=== PATIENT | male | born 1960 | race African-American/Black ===

== ENCOUNTER 2018-01-18 23:13 | Observation (INO) ==
--- NOTE | 2018-01-18 23:29 | ED ---
HPI General Chief Complaint: Altered Mental Status Stated Complaint: Diabetic Time Seen by Provider: 01/18/18 23:26 Source: patient, family and EMS Mode of arrival: EMS Limitations: altered mental status History of Present Illness HPI narrative: 57-year-old male patient with history of diabetes, presents to the ER today brought in by EMS because family called, apparently he is appearing much more lethargic and disoriented than usual according to family and the blood sugars reading at 400. He was given a fluid bolus by EMS and his blood sugars going up to 500. He admits that he has recently started taking metformin. He is not able to give me much further history. He is very lethargic and disoriented. Related Data Previous Rx's Medication Instructions Recorded metformin 500 mg PO BID #60 tab 01/17/18 nystatin 1 applic TOPICAL BID #30 g 01/17/18 Allergies Allergy/AdvReac Type Severity Reaction Status Date / Time No Known Allergies Allergy Verified 01/17/18 10:26 Review of Systems ROS Unobtainable ROS Unobtainable: unobtainable due to mental status PMFSH History History Provided By: Medical Record and Classification Officer / EMT Medical History Medical History Anxiety (Acute) Depression (Acute) Hypertension (Acute) Social History Social History Substance History: No History of Abuse Second Hand Smoke Exposure: No Smoking Status: Never smoker How Often Do You Have a Drink Containing Alcohol: Never Recent Travel in [facility] within the Last 8 Weeks: No Recent Out of Country Travel within the Last 8 Weeks: No Exam Narrative Exam Narrative: GENERAL: Well-developed middle-age -Citizen Of [place] male patient currently in moderate distress. Lethargic, disoriented, not giving further history. SKIN: Focused skin assessment warm/dry. HEAD: Atraumatic. Normocephalic. EYES: Pupils equal and round. No scleral icterus. No injection or drainage. ENT: No nasal bleeding or discharge. Mucous membranes pink and moist. NECK: Trachea midline. No JVD. CARDIOVASCULAR: Regular rate and rhythm. No murmur appreciated. RESPIRATORY: No accessory muscle use. Clear to auscultation. Breath sounds equal bilaterally. GASTROINTESTINAL: Abdomen soft, non-tender, nondistended. Hepatic and splenic margins not palpable. MUSCULOSKELETAL: No obvious deformities. No clubbing. No cyanosis. No edema. NEUROLOGICAL: Lethargic and disoriented, not following commands. Face appears to be symmetrical. Slurred speech.. PSYCHIATRIC: Disoriented, unable to evaluate Course Initial Documented Vital Signs Temperature 98.2 F 01/18/18 23:35 Pulse Rate 70 01/18/18 23:35 Respiratory Rate 18 01/18/18 23:35 Blood Pressure 121/66 01/18/18 23:35 Pulse Oximetry 97 01/18/18 23:35 Last Documented Vital Signs Temperature 98.2 F 01/18/18 23:35 Pulse Rate 70 01/18/18 23:35 Respiratory Rate 18 01/18/18 23:35 Blood Pressure 121/66 01/18/18 23:35 Pulse Oximetry 97 01/18/18 23:35 Medical Decision Making MDM Narrative Medical decision making narrative: Patient had 2 L of IV fluids without significant improvement in blood sugar. Insulin was given in the ER. His anion gap is normal but his blood sugar is quite elevated 450. His ketones are elevated as well at 2. Patient has been initiated on metformin therapy and it seems to not be controlling his blood sugars well. His states that he was seen yesterday at [facility] for the similar circumstances. At this point, he is fairly disoriented and my plan would be to admit him for further treatment. Case is discussed with Dr. Durán for admission. Medical Screen Exam Complete: Yes Emergency Medical Condition: Yes Differential Diagnosis Differential Diagnosis: Electrolyte abnormalities versus sepsis versus acute intracranial processes Lab Data Lab results reviewed: Yes I reviewed the patient's lab results. Result diagrams: 01/18/18 23:35 01/18/18 23:35 Lab Results 01/18/18 01/18/18 01/18/18 Range/Units 23:35 23:35 23:45 WBC 5.3 (4.0-11.0) th/mm3 RBC 4.18 L (4.50-5.90) mil/mm3 Hgb 13.0 D (13.0-17.0) gm/dL Hct 38.6 L (39.0-51.0) % MCV 92.2 (80.0-100.0) fL MCH 31.1 (27.0-34.0) pg MCHC 33.7 (32.0-36.0) % RDW 13.3 (11.6-17.2) % Plt Count 194 (150-450) th/mm3 MPV 10.2 (7.0-11.0) fL Neut % (Auto) 50.9 (16.0-70.0) % Lymph % (Auto) 37.6 (9.0-44.0) % [place] % (Auto) 9.4 H (0.0-8.0) % Eos % (Auto) 1.4 (0.0-4.0) % Baso % (Auto) 0.7 (0.0-2.0) % Neut # (Auto) 2.7 (1.8-7.7) th/mm3 Lymph # (Auto) 2.0 (1.0-4.8) th/mm3 [place] # (Auto) 0.5 (0.0-0.9) th/mm3 Eos # (Auto) 0.1 (0.0-0.4) th/mm3 Baso # (Auto) 0.0 (0.0-0.2) th/mm3 WBC Differential . Differential Comment Auto diff final Sodium 137 (136-145) meq/L Potassium 4.1 (3.5-5.1) meq/L Chloride 101 D (98-107) meq/L Carbon Dioxide 28.7 (21.0-32.0) meq/L Anion Gap 7 (5-15) meq/L BUN 10 (7-18) mg/dL Creatinine 1.20 (0.60-1.30) mg/dL Estimated GFR 75 L (>89) mL/min Random Glucose 457 H* D (74-106) mg/dL Calcium 8.8 (8.5-10.1) mg/dL Total Bilirubin 0.3 (0.2-1.0) mg/dL AST 11 L (15-37) U/L ALT 16 (12-78) U/L Alkaline Phosphatase 127 H (45-117) U/L Total Protein 6.7 D (6.4-8.2) g/dL Albumin 3.3 L D (3.4-5.0) g/dL Beta-Hydroxybutyric Acd 2.02 H (0.00-0.39) mmol/L Urine Color Straw (Yellw/Straw) Urine Clarity Clear (Clear) Urine pH 5.0 (5.0-8.5) Ur Specific [place] 1.036 H (1.002-1.035) Urine Protein Negative (Neg-Trace) mg/dL Urine Glucose (UA) 500 or greater (Negative) mg/dL Urine Ketones 20 (Negative) mg/dL Urine Occult Blood Small H (Negative) Urine Nitrate Negative (Negative) Urine Bilirubin Negative (Negative) Urine Urobilinogen Less than 2 (Less than 2) mg/dL Ur Leukocyte Esterase Small H (Negative) Urine RBC 16 H (0-3) /hpf Urine WBC 3 (0-5) /hpf Ur Squamous Epith Cells <1 (0-5) /hpf Urine Bacteria Occasional H (None) /hpf Urine Mucus Few H (Occasional) /lpf Urine Yeast Few H (None) /hpf Ur Microscopic Review Not Reportable Imaging Data Attestation: I personally reviewed and interpreted this imaging study as follows : Radiologist's impression: Chest X-Ray 01/18/18 23:26 CONCLUSION: No acute cardiopulmonary abnormality is identified. Head CT 01/18/18 23:26 CONCLUSION: No acute intracranial abnormality is identified. . Discharge Plan Discharge Disposition Patient Disposition: 30 Still Patient Discharge Condition Condition: Stable Discharge Details Anticipated Discharge Date: 01/19/18 Diagnosis: Delirium due to general medical condition, Hyperglycemia Physicians Team ED Provider: Cyndy Booth Primary Care Provider: Primary Care Andree Stanton Rxs /Orders / Referrals /Forms Prescriptions: No Action metformin 500 mg tablet 500 mg PO BID Qty: 60 RF: 0 nystatin 100,000 unit/gram ointment 1 applic TOPICAL BID Qty: 30 RF: 0 Status ED Status: Admitted Patient
[2018-01-18 23:50] LABS: Baso % (Auto) 0.7 % (0.0-2.0); Eos # (Auto) 0.1 th/mm3 (0.0-0.4); Eos % (Auto) 1.4 % (0.0-4.0); Hematocrit 38.6 % (39.0-51.0); Lymph % (Auto) 37.6 % (9.0-44.0); Mean Corpuscular HGB Conc 33.7 % (32.0-36.0); Mean Corpuscular Hemoglobin 31.1 pg (27.0-34.0); Mean Corpuscular Volume 92.2 fL (80.0-100.0); Mean Platelet Volume 10.2 fL (7.0-11.0); Mono # (Auto) 0.5 th/mm3 (0.0-0.9); Mono % (Auto) 9.4 % (0.0-8.0); Neut # (Auto) 2.7 th/mm3 (1.8-7.7); Neut % (Auto) 50.9 % (16.0-70.0); Platelet Count 194 th/mm3 (150-450); Red Blood Count 4.18 mil/mm3 (4.50-5.90); Red Cell Distribution Width 13.3 % (11.6-17.2); White Blood Count 5.3 th/mm3 (4.0-11.0)
[2018-01-19 00:08] LABS: Bacteria,Urine Occasional /hpf; Bilirubin,Urine Negative (Negative); Clarity,Urine Clear (Clear); Color,Urine Straw (Yellw/Straw); Glucose,Urine (UA) 500 or Greater mg/dL (Negative); Leukocyte Esterase,Urine Small (Negative); Mucus,Urine Few /lpf (Occasional); Nitrite,Urine Negative (Negative); Specific Gravity,Urine 1.036 (1.002-1.035); Squamous Epithelial Cell,Urine <1 /hpf (0-5)
[2018-01-19 00:12] LABS: Alanine Aminotransferase 16 U/L (12-78); Albumin 3.3 g/dL (3.4-5.0); Alkaline Phosphatase 127 U/L (45-117); Anion Gap 7 meq/L (5-15); Aspartate Aminotransferase 11 U/L (15-37); Beta Hydroxybutyric Acid 2.02 mmol/L (0.00-0.39); Blood Urea Nitrogen 10 mg/dL (7-18); Calcium 8.8 mg/dL (8.5-10.1); Carbon Dioxide 28.7 meq/L (21.0-32.0); Chloride 101 meq/L (98-107); Glomerular Filtration Rate 75 mL/min (>89); Potassium 4.1 meq/L (3.5-5.1); Sodium 137 meq/L (136-145); Total Protein 6.7 g/dL (6.4-8.2)
[2018-01-19 00:15] LABS: Glucose,Random 457 mg/dL (74-106)
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
--- NOTE | 2018-01-19 00:36 | CT ---
EXAM DATE: 01/19/2018 12:01 AM EDT AGE/SEX: 57 years / Male INDICATIONS: Altered mental status. CLINICAL DATA: This is the patient's initial encounter. Patient reports that signs and symptoms have been present for 1 day and indicates a pain score of 0/10. MEDICAL/SURGICAL HISTORY: Hypertension. Diabetes. None. RADIATION DOSE: 38.99 CTDI (mGy) COMPARISON: [facility] [place], CT BRAIN W/O CONTRAST, 09/09/2014. . TECHNIQUE: CT of the head without contrast. Using automated exposure control and adjustment of the mA and/or kV according to patient size, radiation dose was kept as low as reasonably achievable to ob tain optimal diagnostic quality images. DICOM format image data is available electronically for revi ew and comparison. FINDINGS: Cerebrum: The ventricles are normal. No midline shift, mass lesion, hemorrhage or acute infarction. No extraaxial fluid collections are seen. Posterior Fossa: The cerebellum and brainstem demonstrate no acute abnormality. The 4th ventricle is midline. The cerebellopontine angle is within normal limits. Extracranial: The visualized sinuses are clear. Skull: The calvaria is intact. No skull fracture. CONCLUSION: No acute intracranial abnormality is identified. . Electronically signed by: Tai Lima MD 01/19/2018 12:35 AM EDT
[2018-01-19] MEDS ORDERED: Dextrose 50% in Water 50 ML Vial IV.PUSH PRN (03:35)
[2018-01-19] MEDS ORDERED: Acetaminophen 325 MG Tablet PO PRN (03:37)
[2018-01-19] MEDS ORDERED: Bisacodyl 10 MG Supp RECTAL PRN (03:37)
[2018-01-19] MEDS ORDERED: Sod Chloride 0.9% Inj 1,000 ML IV.SIG SCH (03:45)
--- NOTE | 2018-01-19 03:47 | P.HP ---
History of Present Illness Service: [facility] Primary Care Physician: No Primary Care Physician History of Present Illness: 57-year-old male with past medical history significant for recent diagnosis of diabetes mellitus and hypertension presents to the emergency department for evaluation of altered mental status. The patient reports that his sister tried to awaken him earlier this evening and she was unable to do so. She called EMS and the patient was brought to the emergency department for further evaluation. On arrival, the patient's blood sugar was elevated. He was seen in [place] 2 days ago and diagnosed with new onset diabetes and given a prescription for metformin. The patient reports he took metformin for 1 day. He denies any chest pain or shortness of breath. No abdominal pain. No nausea/ vomiting/diarrhea. He is sleepy although able to recount all events. No fever/ chills. Review of Systems All other systems reviewed negative except as stated in HPI PMFSH - History History Provided By: Medical Record, Electrician Deck / EMT - Medical History Medical History: Medical History (Last Updated 01/19/18 @ 03:43 by Octavia Durán MD) Diabetes Anxiety Depression Hypertension - Surgical History Surgical History: Surgical History (Last Updated 01/19/18 @ 03:43 by Octavia Durán MD) Hx of thumb surgery Status post wrist surgery - Family History Family History: Family History (Last Updated 01/19/18 @ 03:43 by Octavia Durán MD) Other Hypertension - Tobacco History Second Hand Smoke Exposure: No Smoking Status: Never smoker - Alcohol History How Often Do You Have a Drink Containing Alcohol: Never - Substance Use History Substance History: No History of Abuse - Travel History Recent Travel in the [place] Within the Last 8 Weeks: No Recent Travel Out of the Country Within the Last 8 Weeks: No - Immunization History Tetanus Immunization: <5 Years Hx Influenza Vaccine This Season: No Medications and Allergies Active Medications: Active Medications Acetaminophen (Tylenol) 650 mg PO Q4H PRN PRN Reason: Temp > 100.4 Al Hydroxide/Mg Hydroxide (Milk Of Magnesia Liq) 30 ml PO Q12H PRN PRN Reason: Mild Constipation Bisacodyl (Dulcolax Supp) 10 mg RECTAL DAILY PRN PRN Reason: SEVERE CONSITIPATION Dextrose (D50w Vial) 50 ml IV.PUSH UNSCH PRN PRN Reason: PER HYPOGLYCEMIA PROTOCOL Glucagon (Glucagon Inj) 1 mg OTHER PRN PRN PRN Reason: for Hypoglycemia Protocol Sodium Chloride (Ns Inj) 1,000 mls @ 125 mls/hr IV.CONT .Q8H ELEN Sodium Chloride (Ns Inj) 1,000 mls @ 0 mls/hr IV.SIG BOLUS ELEN Insulin Aspart (Novolog Insulin Correctional Sugar Inj) 0 unit SQ ACHS AND 3AM ELEN; Protocol Insulin Human Regular (Novolin R Inj) 5 units IV.PUSH ONCE ONE Stop: 01/19/18 03:38 Lactulose (Lactulose Liq) 30 ml PO DAILY PRN PRN Reason: SEVERE CONSITIPATION Ondansetron HCl (Zofran Inj) 4 mg IV.PUSH Q6H PRN PRN Reason: NAUSEA OR VOMITING Senna/Docusate Sodium (Katherine-Colace) 1 tab PO BID ELEN Sennosides (Senokot) 17.2 mg PO Q12H PRN PRN Reason: Moderate Constipation Allergies Allergy/AdvReac Type Severity Reaction Status Date / Time No Known Allergies Allergy Verified 01/17/18 10:26 Exam Vital signs: Vital Signs 01/18/18 23:35 Temperature 98.2 F Pulse Rate 70 Respiratory Rate 18 Blood Pressure 121/66 Pulse Oximetry 97 Intake & Output 01/18/18 01/18/18 01/19/18 06:59 18:59 06:59 Weight 92.986 kg Narrative: Gen.: No acute distress Head: Normocephalic. Atraumatic. EENT: Pupils equal round and reactive to light. Nose without drainage. Airway intact. Throat without injection. Cardiovascular: Regular rate and rhythm. No murmurs, rubs or gallops. Respiratory: Lungs clear to auscultation bilaterally. No wheezes or rhonchi. Abdomen: Soft, nontender, nondistended. No peritoneal signs. Musculoskeletal: No gross deformities. No edema. Skin: No obvious rashes or erythema. Neuro: Sensory and motor grossly intact. Cranial nerves II through XII grossly intact. Results - Labs CBC & Chem 7: 01/18/18 23:35 01/18/18 23:35 Labs: Laboratory Results - last 24 hr 01/18/18 01/18/18 01/18/18 23:35 23:35 23:45 WBC 5.3 RBC 4.18 L Hgb 13.0 D Hct 38.6 L MCV 92.2 MCH 31.1 MCHC 33.7 RDW 13.3 Plt Count 194 MPV 10.2 Neut % (Auto) 50.9 Lymph % (Auto) 37.6 [place] % (Auto) 9.4 H Eos % (Auto) 1.4 Baso % (Auto) 0.7 Neut # (Auto) 2.7 Lymph # (Auto) 2.0 [place] # (Auto) 0.5 Eos # (Auto) 0.1 Baso # (Auto) 0.0 WBC Differential . Differential Comment Auto diff final Sodium 137 Potassium 4.1 Chloride 101 D Carbon Dioxide 28.7 Anion Gap 7 BUN 10 Creatinine 1.20 Estimated GFR 75 L Random Glucose 457 H* D Calcium 8.8 Total Bilirubin 0.3 AST 11 L ALT 16 Alkaline Phosphatase 127 H Total Protein 6.7 D Albumin 3.3 L D Beta-Hydroxybutyric Acd 2.02 H Urine Color Straw Urine Clarity Clear Urine pH 5.0 Ur Specific [place] 1.036 H Urine Protein Negative Urine Glucose (UA) 500 or greater Urine Ketones 20 Urine Occult Blood Small H Urine Nitrate Negative Urine Bilirubin Negative Urine Urobilinogen Less than 2 Ur Leukocyte Esterase Small H Urine RBC 16 H Urine WBC 3 Ur Squamous Epith Cells <1 Urine Bacteria Occasional H Urine Mucus Few H Urine Yeast Few H Ur Microscopic Review Not Reportable - Imaging Impressions Chest X-Ray 01/18/18 23:26 CONCLUSION: No acute cardiopulmonary abnormality is identified. Head CT 01/18/18 23:26 CONCLUSION: No acute intracranial abnormality is identified. . Caprini VTE Risk Assessment Caprini VTE Risk Assessment: No/Low Risk (score <= 1) Caprini Risk Assessment Model: Point Value = 1 Point Value = 2 Point Value = 3 Point Value = 5 Age 41-60 Minor surgery BMI > 25 kg/m2 Swollen legs Varicose veins or History of unexplained or recurrent spontaneous Oral contraceptives or hormone replacement Sepsis (< 1 month) Serious lung disease, including pneumonia (< 1 month) Abnormal pulmonary function Acute myocardial infarction Congestive heart failure (< 1 month) History of inflammatory bowel disease Medical patient at bed rest Age 61-74 Arthroscopic surgery Major open surgery (> 45 min) Laparoscopic surgery (> 45 min) Malignancy Confined to bed (> 72 hours) Immobilizing plaster cast Central venous access Age >= 75 History of VTE Family history of VTE Factor V Leiden Prothrombin [id number] Lupus anticoagulant Anticardiolipin antibodies Elevated serum homocysteine Heparin-induced thrombocytopenia Other congenital or acquired thrombophilia Stroke (< 1 month) Elective arthroplasty Hip, pelvis, or leg fracture Acute spinal cord injury (< 1 month) Prophylaxis Regimen: Total Risk Factor Score Risk Level Prophylaxis Regimen 0-1 Low Early ambulation 2 Moderate Order ONE of the following: *Sequential Compression Device (SCD) *Heparin 5000 units SQ BID 3-4 Higher Order ONE of the following medications: *Heparin 5000 units SQ TID *Enoxaparin/Lovenox 40 mg SQ daily (WT < 150 kg, CrCl > 30 mL/min) *Enoxaparin/Lovenox 30 mg SQ daily (WT < 150 kg, CrCl > 10-29 mL/min) *Enoxaparin/Lovenox 30 mg SQ BID (WT < 150 kg, CrCl > 30 mL/min) AND/OR *Sequential Compression Device (SCD) 5 or more Highest Order ONE of the following medications: *Heparin 5000 units SQ TID (Preferred with Epidurals) *Enoxaparin/Lovenox 40 mg SQ daily (WT < 150 kg, CrCl > 30 mL/min) *Enoxaparin/Lovenox 30 mg SQ daily (WT < 150 kg, CrCl > 10-29 mL/min) *Enoxaparin/Lovenox 30 mg SQ BID (WT < 150 kg, CrCl > 30 mL/min) AND *Sequential Compression Device (SCD) Assessment and Plan - Plan Assessment/plan: 1. Diabetes mellitus/hyperglycemia Patient seen in [place] 2 days ago and diagnosed with diabetes mellitus, given prescription for metformin Reports compliance with Metformin 1 day Blood glucose on arrival to the emergency department 457 IV insulin and IV fluids Consult adult educator A1c pending 2. Hypertension Patient not currently on any home medications Hypotensive Monitor FEN Diabetic diet Electrolytes: Monitor and replete as needed NS at 1 25 cc cc per hour
[2018-01-19] MEDS: Sod Chloride 0.9% Inj 1,000 ML IV.CONT SCH ×2 (07:42→13:28)
[2018-01-19 08:29] LABS: Anion Gap 10 meq/L (5-15); Blood Urea Nitrogen 9 mg/dL (7-18); Calcium 8.7 mg/dL (8.5-10.1); Carbon Dioxide 25.8 meq/L (21.0-32.0); Chloride 106 meq/L (98-107); Glomerular Filtration Rate Greater Than 89 mL/min (>89); Glucose,Random 257 mg/dL (74-106); Potassium 4.4 meq/L (3.5-5.1); Sodium 142 meq/L (136-145)
[2018-01-19] MEDS: Insulin NovoLOG Aspart Correctional Sugar Inj SQ SCH ×3 (09:30→16:25)
[2018-01-19] MEDS: Senna/Docusate Sodium 8.6/50 MG Tablet PO SCH ×2 (09:33→09:34)
--- NOTE | 2018-01-19 10:05 | P.PNIM ---
Subjective Interval history: Patient states that he feels sleepy. Physical Exam Vital signs: Vital Signs 01/18/18 23:35 01/19/18 06:27 01/19/18 07:42 Temperature 98.2 F Pulse Rate 70 72 73 Respiratory Rate 18 10 L 19 Blood Pressure 121/66 105/60 112/69 Pulse Oximetry 97 99 98 Intake & Output 01/18/18 01/19/18 01/19/18 18:59 06:59 18:59 Intake Total 1000 / 1000 Balance 1000 / 1000 Weight 92.986 kg Intake: IV 1000 / 1000 NS Inj 1,000 ML @ Wide Open IV. 1000 / 1000 SIG BOLUS ELEN Rx#:[id number] Narrative: General patient in no acute distress. Patient is alert and oriented x3 responding to all of my questions and commands appropriately HEENT extraocular movements are intact, clear oropharyngeal mucosa, no JVD Cardiovascular S1-S2 audible, RRR, no murmurs rubs or gallops Respiratory clear to auscultation bilaterally Abdomen soft, nontender, nondistended, normal bowel sounds Extremities no edema 2+ distal pulses in bilateral upper and lower extremities Neuro cranial nerves II through XII intact Results - Labs CBC & Chem 7: 01/18/18 23:35 01/19/18 07:20 Laboratory Results - last 24 hr 01/18/18 01/18/18 01/18/18 23:35 23:35 23:45 WBC 5.3 RBC 4.18 L Hgb 13.0 D Hct 38.6 L MCV 92.2 MCH 31.1 MCHC 33.7 RDW 13.3 Plt Count 194 MPV 10.2 Neut % (Auto) 50.9 Lymph % (Auto) 37.6 [place] % (Auto) 9.4 H Eos % (Auto) 1.4 Baso % (Auto) 0.7 Neut # (Auto) 2.7 Lymph # (Auto) 2.0 [place] # (Auto) 0.5 Eos # (Auto) 0.1 Baso # (Auto) 0.0 WBC Differential . Differential Comment Auto diff final Sodium 137 Potassium 4.1 Chloride 101 D Carbon Dioxide 28.7 Anion Gap 7 BUN 10 Creatinine 1.20 Estimated GFR 75 L POC Glucose Random Glucose 457 H* D Calcium 8.8 Total Bilirubin 0.3 AST 11 L ALT 16 Alkaline Phosphatase 127 H Total Protein 6.7 D Albumin 3.3 L D Beta-Hydroxybutyric Acd 2.02 H Urine Color Straw Urine Clarity Clear Urine pH 5.0 Ur Specific [place] 1.036 H Urine Protein Negative Urine Glucose (UA) 500 or greater Urine Ketones 20 Urine Occult Blood Small H Urine Nitrate Negative Urine Bilirubin Negative Urine Urobilinogen Less than 2 Ur Leukocyte Esterase Small H Urine RBC 16 H Urine WBC 3 Ur Squamous Epith Cells <1 Urine Bacteria Occasional H Urine Mucus Few H Urine Yeast Few H Ur Microscopic Review Not Reportable 01/19/18 01/19/18 07:20 09:24 WBC RBC Hgb Hct MCV MCH MCHC RDW Plt Count MPV Neut % (Auto) Lymph % (Auto) [place] % (Auto) Eos % (Auto) Baso % (Auto) Neut # (Auto) Lymph # (Auto) [place] # (Auto) Eos # (Auto) Baso # (Auto) WBC Differential Differential Comment Sodium 142 Potassium 4.4 Chloride 106 Carbon Dioxide 25.8 Anion Gap 10 BUN 9 Creatinine 0.88 Estimated GFR Greater than 89 POC Glucose 241 H Random Glucose 257 H D Calcium 8.7 Total Bilirubin AST ALT Alkaline Phosphatase Total Protein Albumin Beta-Hydroxybutyric Acd Urine Color Urine Clarity Urine pH Ur Specific [place] Urine Protein Urine Glucose (UA) Urine Ketones Urine Occult Blood Urine Nitrate Urine Bilirubin Urine Urobilinogen Ur Leukocyte Esterase Urine RBC Urine WBC Ur Squamous Epith Cells Urine Bacteria Urine Mucus Urine Yeast Ur Microscopic Review - Imaging Impressions Chest X-Ray 01/18/18 23:26 CONCLUSION: No acute cardiopulmonary abnormality is identified. Head CT 01/18/18 23:26 CONCLUSION: No acute intracranial abnormality is identified. . Assessment and Plan - Assessment (1) Hyperglycemia due to type 2 diabetes mellitus Code(s): E11.65 - Type 2 diabetes mellitus with hyperglycemia Status: Acute (2) Altered level of consciousness Code(s): R40.4 - Transient alteration of awareness Status: Acute - Plan This patient is a 57-year-old -[place] male who was recently diagnosed with diabetes mellitus type 2 and started on metformin. He has been noncompliant with his diet and states that he drinks sodas and has poor eating habits. His family noticed that he was lethargic and acting strangely at home. They then brought him into the emergency department for further evaluation. 1. Acute symptomatic hyperglycemia 2. Altered level of consciousness likely secondary to hyperglycemia The patient was admitted and given IV insulin as his blood sugar was found to be in the mid 400s. The patient was recently discharged on metformin 500 mg twice daily. Diabetic education will be given to the patient today. His blood sugar is now better controlled while in the hospital. He was also advised to follow a diabetic diet and to start a exercise routine. He was advised to follow-up with his primary care physician for further management and care of his diabetes. Hemoglobin A1c was ordered on admission and is pending. He is currently on a sliding scale. On arrival the patient was found to be confused. On my examination today the patient is alert and oriented x3 and is responding appropriately to all of my questions and commands. After improvement of the hyperglycemia his altered level of consciousness improved.
[2018-01-19 15:35] LABS: Hemoglobin A1c 13.9 % (4.3-6.0)
== END 2018-01-19 16:59 | disposition home or self-care (01) ==
LOC: NEPE 23:13 → NEDA 23:13 → NEPGCP 01-19 10:41
PROVIDERS: ADMIT Hospitalist; ATTEND Hospitalist
DX: F05 Delirium due to known physiological condition; E11.65 Type 2 diabetes mellitus with hyperglycemia; Z79.84 Long term (current) use of oral hypoglycemic drugs; F41.9 Anxiety disorder, unspecified; Z91.11 Patient's noncompliance with dietary regimen; I10 Essential (primary) hypertension; Z82.49 Family history of ischemic heart disease and other diseases of the circulatory system; F32.9 Major depressive disorder, single episode, unspecified; Z87.891 Personal history of nicotine dependence